=== PATIENT | female | born 1950 | race Caucasian/White ===

== ENCOUNTER 2017-03-31 11:27 | Emergency (ER) | payer OTHER ==
--- NOTE | 2017-03-31 11:34 | PDOC ---
History of Present Illness - General Chief Complaint: Urinary Problem Stated Complaint: UTI Time Seen by Provider: 03/31/17 11:29 History Source: Patient Exam Limitations: No Limitations - History of Present Illness Initial Comments: 03/31/17 11:29 The patient is a 67-year-old female with a significant past medical history of panhypopituitarism (compliant with all medications including her oral steroid), who presents to the emergency department complaining of 12 hours of dysuria. She had symptoms of a urinary tract infection and was diagnosed with a urinary tract infection approximately 12 days ago after a urinalysis confirmed a diagnosis of UTI. She was prescribed nitrofurantoin based on urine culture results, and completed the course 2 days ago. She was completely asymptomatic until yesterday. She denies back pain, flank pain, fever. She denies abdominal pain, nausea, vomiting, diarrhea. She denies weakness, fatigue. She has a remote history of ALLERGY to penicillin, which was characterized by a mild rash which she developed as a child. 03/31/17 11:46 Past History - Past Medical History Allergies/Adverse Reactions: Allergies Allergy/AdvReac Type Severity Reaction Status Date / Time Penicillins Allergy Unknown Verified 03/31/17 11:45 Home Medications: Ambulatory Orders Aspirin [Aspirin EC] 81 mg PO DAILY 03/31/17 Cefdinir [Omnicef -] 300 mg PO BID #14 capsule 03/31/17 Cholecalciferol (Vitamin D3) [Vitamin D3 -] 1,000 unit PO DAILY 03/31/17 Escitalopram Oxalate [Lexapro -] 20 mg PO DAILY 03/31/17 Fexofenadine HCl 180 mg PO DAILY 03/31/17 Hydrocortisone [Cortef] 10 mg PO TID 03/31/17 Ibuprofen 400 mg PO TID PRN 03/31/17 Levothyroxine [Synthroid -] 125 mcg PO DAILY 03/31/17 Liothyronine Sodium [Cytomel] 125 mcg PO DAILY 03/31/17 Nitrofurantoin Macrocrystal [Nitrofurantoin] 100 mg PO BID 03/31/17 Omeprazole 40 mg PO DAILY 03/31/17 Simvastatin 40 mg PO DAILY 03/31/17 Ubidecarenone [Co Q-10] 200 mg PO DAILY 03/31/17 Review of Systems - Review of Systems Comments:: 03/31/17 11:30 CONSTITUTIONAL: Absent: fever, chills, fatigue EYES: Absent: visual changes ENT: Absent: ear pain, sore throat CARDIOVASCULAR: Absent: chest pain, palpitations, loss of consciousness RESPIRATORY: Absent: cough, SOB GI: Absent: abdominal pain, nausea, vomiting, constipation, diarrhea GENITOURINARY: Present: See history of present illness MUSKULOSKELETAL: Absent: back pain, arthralgia, myalgia SKIN: Absent: rash NEURO: Absent: headache, dizziness *Physical Exam - Physical Exam Comments: 03/31/17 11:30 GENERAL: Well developed, well nourished. Awake and alert. No acute distress. HEENT: Normocephalic, atraumatic. PERRLA, EOMI. No conjunctival pallor. Sclera are non- icteric. Moist mucous membranes. Oropharynx is clear. NECK: Supple. Full ROM. No JVD. Carotid pulses 2+ and symmetric, without bruits. No thyromegaly. No lymphadenopathy. CARDIOVASCULAR: Regular rate and rhythm. No murmurs, rubs, or gallops. Distal pulses are 2+ and symmetric. PULMONARY: No evidence of respiratory distress. Lungs clear to auscultation bilaterally. No wheezing, rales or rhonchi. ABDOMINAL: Soft. Non-tender. Non-distended. No rebound or guarding. No organomegaly. Normoactive bowel sounds. MUSCULOSKELETAL Normal range of motion at all joints. No bony deformities or tenderness. No CVA tenderness. EXTREMITIES: No cyanosis. No clubbing. No edema. No calf tenderness. SKIN: Warm and dry. Normal capillary refill. No rashes. No jaundice. NEUROLOGICAL: Alert, awake, appropriate. Cranial nerves 2-12 intact. No deficits to light touch and temperature in face, upper extremities and lower extremities. No motor deficits in the in face, upper extremities and lower extremities. Normoreflexic in the upper and lower extremities. Normal speech. Toes are down- going bilaterally. Gait is normal without ataxia. PSYCHIATRIC: Cooperative. Good eye contact. Appropriate mood and affect. Medical Decision Making - Medical Decision Making 03/31/17 11:31 The patient is well-appearing and in no acute distress Her clinical presentation is quite consistent with lower urinary tract infection There is no evidence of pyelonephritis or sepsis Will send urine culture Will treat empirically for now, using a cephalosporin I discussed the risks and benefits of cephalosporin use, given her remote and mild penicillin ALLERGY We will give 1 g of ceftriaxone IV, given her panhypopituitarism and her recent failure of nitrofurantoin We will then prescribed Keflex 03/31/17 12:27 The patient has tolerated the ceftriaxone without any adverse events She understands the importance of 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 He is currently in the operating room until late this afternoon, and was unavailable. Clinical impression: Urinary tract infection, lower I discussed the physical exam findings, ancillary test results and final diagnoses with the patient. I answered all of the patient's questions. The patient was satisfied with the care received and felt comfortable with the discharge plan and treatment plan. The patient will call their primary care physician within 24 hours to arrange follow-up and will return to the Emergency Department with any new, persistent or worsening symptoms. *DC/Admit/Observation/Transfer Diagnosis at time of Disposition: UTI (urinary tract infection) - Discharge Dispostion Disposition: HOME Condition at time of disposition: Good - Prescriptions Prescriptions: Cefdinir [Omnicef -] 300 mg PO BID #14 capsule - Referrals Referrals: Michel Shelby I [Primary Care Provider] - - Patient Instructions Printed Discharge Instructions: DI for Urinary Tract Infection (UTI) Additional Instructions: Have your physician call for the results of the urine culture on Sunday. Return to the emergency department immediately with ANY new, persistent or worsening symptoms. You MUST call and follow up with your doctor tomorrow. Please make sure your doctor reviews the results of your emergency department evaluation.
[2017-03-31] MEDS ORDERED: CEFTRIAXONE 1 GM in DEXTROSE 5%-WATER - 50 ML IVPB ONE (11:49)
[2017-03-31 11:52] VITALS: BP 119/60; PULSE 68; TEMP 98.3; BMI 24.1
[2017-03-31] MEDS ORDERED: cefTRIAXone SODIUM 1 GM VIAL ONE (11:55)
[2017-03-31 11:57] LABS: PH,URINE 5.5 (4.5-8); URINE APPEARANCE Cloudy; URINE BILIRUBIN Negative (NEGATIVE); URINE BLOOD 1+ (NEGATIVE); URINE COLOR YELLOW; URINE GLUCOSE (UA) Negative (NEGATIVE); URINE KETONE Negative (NEGATIVE); URINE LEUK ESTERASE 2+ (NEGATIVE); URINE NITRITE Positive (NEGATIVE); URINE PROTEIN Negative (NEGATIVE); URINE UROBILINOGEN 0.2 E.U/dl (0.2-1.0)
[2017-03-31 11:58] LABS: URINE BACTERIA MANY /hpf (NEGATIVE); URINE MUCUS MODERATE
== END 2017-03-31 12:50 | disposition home or self-care (01) ==
LOC: FER 11:27
DX: N39.0 Urinary tract infection, site not specified (principal); E23.0 Hypopituitarism
CPT/HCPCS: 81003; 81015; 87086; 87186; 99282-25